=== PATIENT | female | born 1945 | race Caucasian/White ===

== ENCOUNTER 2019-06-02 17:38 | Emergency (ER) | payer SELFPAY, OTHER, MEDICAID ==
[2019-06-02] MEDS: ACETAMINOPHEN 500 MG TAB PO (19:21)
[2019-06-02] MEDS ORDERED: IBUPROFEN 600 MG TAB PO (19:30)
== END 2019-06-02 19:39 | disposition home or self-care (01) ==
LOC: E/R 17:38
DX: M54.6 Pain in thoracic spine (principal); I10 Essential (primary) hypertension; F17.210 Nicotine dependence, cigarettes, uncomplicated; Z79.82 Long term (current) use of aspirin
CPT/HCPCS: 71045; 72100; 99284-25